=== PATIENT | female | born 1975 | race Caucasian/White ===

== ENCOUNTER 2016-08-24 02:44 | Emergency (ER) | payer BC ==
[~2016-08-24] VITALS: Ht 167.6 cm; Wt 92.5 kg
[2016-08-24 03:01] VITALS: TEMP 36.9; Ht 167.6 cm; Wt 92.5 kg
[2016-08-24] MEDS ORDERED: SODIUM CHLORIDE 0.9% 500ML 500 ML IV STA (03:27)
[2016-08-24] MEDS ORDERED: SODIUM CHLORIDE 0.9% 1000ML 1,000 ML IV STA (03:27)
--- NOTE | 2016-08-24 03:31 | EMERGENCY ROOM VISIT NOTE ---
History Report prepared by Manav: Williams Dee Under the Supervision of: Dr. Pavithra Monteiro M.D. First contact with patient: 03:09 Chief Complaint: ABDOMINAL PAIN Stated Complaint: STOMACH PAINS Nursing Triage Summary: francy florez. takes Humira every 14 days. pain started . took Humira Wednesday. pt feeling like she is bloated. having intermittent abdominal pain. denies N/V/D. normal BMs for pt every 2-3 days as usual. pt states she feels like food is sitting in her throat. History of Present Illness The patient is a 41 year old female who presents to the Emergency Room with complaints of intermittent pain in the epigastric region that began on of last week, 4 days prior to arrival. She describes the pain as a "pressure." The patient has a history of Crohn's disease, but is not sure if these symptoms are related to that. She has been noticing some bright red blood in the stool which she believes is from hemorrhoids. The patient does not usually see blood in the stool. Source of History: patient Onset: 4 days [employer] Position: abdomen (Epigastric) Quality: pressure Timing: intermittent Note: Blood in the stool Review of Systems See HPI for pertinent positives & negatives. A total of 10 systems reviewed and were otherwise negative. Past Medical & Surgical Medical Problems: (1) Crohn's disease Crohn's disease Family History Diabetes mellitus Social History Smoking Status: Never Smoker Drug Use: none Marital Status: Housing Status: lives with significant other Occupation Status: employed Current/Historical Medications Scheduled Adalimumab (Humira Pen), 1 DOSE SC DIRECTED Allergies Coded Allergies: Sulfa Antibiotics (Verified Adverse Reaction, Unknown, vomiting, 08/24/16) Physical Exam Vital Signs Date Time Temp Pulse Resp B/P Pulse Ox O2 Delivery O2 Flow Rate FiO2 08/24/16 06:50 68 18 119/74 96 08/24/16 05:04 72 18 128/66 95 Room Air 08/24/16 03:01 36.9 92 18 110/53 98 Room Air Physical Exam Vital signs reviewed. General: Well-appearing female, in no significant distress. HEENT: No scleral icterus, PERRLA, neck supple. Atraumatic. Cardiovascular: Regular rate and rhythm, no extra sounds. Pulmonary: Clear to auscultation bilaterally, normal work of breathing. Abdomen: Tender to palpation over the right upper quadrant. There is no rebounding or guarding. Soft, nondistended, positive bowel sounds. Musculoskeletal: Atraumatic, no peripheral edema. Neurologic: Patient awake alert and oriented x 3 Skin: Warm, dry, no rash Medical Decision & Procedures ER Provider Diagnostic Interpretation: X-ray results as stated below per my interpretation and radiologist interpretation. Other radiology results as stated below per my review and radiologist interpretation: US RUQ: Mild right hydronephrosis and proximal hydroureter. NO gallstones. No gallbladder wall thickening or pericholecystic fluid. Common bile duct within normal limits. Negative sonographic Zayas's sign. Pancrease not well visualized. Radiologist: Sherine Mendoza MD. CT ABDOMEN & PELVIS: Right renal pelviectasis or extrarenal pelvis. No evidence of ureteral stone. A recently passed stone is not entirely excluded. Normal caliber appendix. Query involuting cyst in the left ovary. Right ovary not well visualized. Moderate pelvis free fluid. Ultrasound may be considered if clinically indicated. Mild duodenal wall thickening suggested with adjacent stranding. Correlate clinically for duodenitis or pancreatitis. Moderate amount of stool in the colon. No evidence of bowel obstruction. Small nonspecific mesenteric and retroperitoneal lymph nodes. No fluid collections or free tena. Radiologist: Sherine Cotter M.D. X-ray results as stated below per interpretation by me and the radiologist: ABD X-RAY: No focal lung consolidation, abdomen shows no signs of obstruction, no free air , moderate fecal retention. Laboratory Results 08/24/16 03:37 Red Blood Count 4.50, Mean Corpuscular Volume 78.9, Mean Corpuscular Hemoglobin 26.2, Mean Corpuscular Hemoglobin Concent 33.2, Mean Platelet Volume 10.0, Neutrophils (%) (Auto) 57.7, Lymphocytes (%) (Auto) 26.5, Monocytes (%) (Auto) 13.2, Eosinophils (%) (Auto) 1.9, Basophils (%) (Auto) 0.5, Neutrophils # (Auto ) 3.71, Lymphocytes # (Auto) 1.70, Monocytes # (Auto) 0.85, Eosinophils # (Auto ) 0.12, Basophils # (Auto) 0.03 08/24/16 03:37 Test 08/24/16 03:37 White Blood Count 6.42 K/uL (4.8-10.8) Red Blood Count 4.50 M/uL (4.2-5.4) Hemoglobin 11.8 g/dL (12.0-16.0) Hematocrit 35.5 % (37-47) Mean Corpuscular Volume 78.9 fL (80-100) Mean Corpuscular Hemoglobin 26.2 pg (25-34) Mean Corpuscular Hemoglobin Concent 33.2 g/dl (32-36) Platelet Count 238 K/uL (130-400) Mean Platelet Volume 10.0 fL (7.4-10.4) Neutrophils (%) (Auto) 57.7 % Lymphocytes (%) (Auto) 26.5 % Monocytes (%) (Auto) 13.2 % Eosinophils (%) (Auto) 1.9 % Basophils (%) (Auto) 0.5 % Neutrophils # (Auto) 3.71 K/uL (1.4-6.5) Lymphocytes # (Auto) 1.70 K/uL (1.2-3.4) Monocytes # (Auto) 0.85 K/uL (0.11-0.59) Eosinophils # (Auto) 0.12 K/uL (0-0.5) Basophils # (Auto) 0.03 K/uL (0-0.2) RDW Standard Deviation 39.5 fL (36.4-46.3) RDW Coefficient of Variation 14.0 % (11.5-14.5) Immature Granulocyte % (Auto) 0.2 % Immature Granulocyte # (Auto) 0.01 K/uL (0.00-0.02) Urine Color YELLOW Urine Appearance CLEAR (CLEAR) Urine pH 7.0 (4.5-7.5) Urine Specific [place] 1.025 (1.000-1.030) Urine Protein NEG (NEG) Urine Glucose (UA) NEG (NEG) Urine Ketones NEG (NEG) Urine Occult Blood NEG (NEG) Urine Nitrite NEG (NEG) Urine Bilirubin NEG (NEG) Urine Urobilinogen NEG (NEG) Urine Leukocyte Esterase SMALL (NEG) Urine WBC (Auto) 1-5 /hpf (0-5) Urine RBC (Auto) 0-4 /hpf (0-4) Urine Hyaline Casts (Auto) 1-5 /lpf (0-5) Urine Epithelial Cells (Auto) >30 /lpf (0-5) Urine Bacteria (Auto) 1+ (NEG) Anion Gap 10.0 mmol/L (3-11) Est Creatinine Clear Calc Drug Dose 109.0 ml/min Estimated GFR () 110.4 Estimated GFR (Non- 95.2 BUN/Creatinine Ratio 15.4 (10-20) Calcium Level 8.3 mg/dl (8.5-10.1) Total Bilirubin 0.2 mg/dl (0.2-1) Direct Bilirubin < 0.1 mg/dl (0-0.2) Aspartate Amino Transf (AST/SGOT) 13 U/L (15-37) Alanine Aminotransferase (ALT/SGPT) 28 U/L (12-78) Alkaline Phosphatase 52 U/L (45-117) Total Protein 7.0 gm/dl (6.4-8.2) Albumin 3.5 gm/dl (3.4-5.0) Lipase 100 U/L (73-393) Date/Time Source Procedure Growth Status 08/24/16 03:37 Urine , Clean Catch Urine Culture - Final MORE THAN THREE TYPES OF ORGANISMS KS... Complete Laboratory results per my review. Medications Administered Medications (Trade) Dose Ordered Sig/Viviane Route Start Time Stop Time Status Last Admin Dose Admin Sodium Chloride 500 ml @ 999 mls/hr Q31M STAT IV 08/24/16 03:27 08/24/16 03:57 DC 08/24/16 03:41 999 MLS/HR Sodium Chloride (Nss 1000ml) 1,000 ml @ 125 mls/hr Q8H STAT IV 08/24/16 03:27 08/24/16 09:56 DC 08/24/16 03:40 125 MLS/HR Magnesium Citrate (Citrate Of Magnesia Soln) 150 ml NOW ONCE PO 08/24/16 05:00 08/24/16 05:01 DC 08/24/16 06:30 150 ML Bisacodyl (Dulcolax Supp) 10 mg NOW STAT KS 08/24/16 04:53 08/24/16 04:54 DC 08/24/16 06:30 10 MG ED Course 0325: Past medical records reviewed. The patient was evaluated in room B9. A complete history and physical examination was performed. 0327: Ordered Sodium Chloride 1000 mL @ 125 mL/hr IV, Sodium Chloride 500 mL @ 999 mL/hr IV. 0453: Ordered Bisacodyl 10 mg KS. 0500: Ordered Magnesium Citrate 150 mL PO. 0519: I checked on the patient at this time. She is going to CT scan. 0641: Upon reevaluation, the patient appeared to have improvement of her symptoms. I discussed findings with her. She verbalized agreement of the treatment plan. The patient was discharged home. Medical Decision Differential diagnosis: Etiologies such as appendicitis, diverticulitis, PUD, biliary pathology, UTI, pancreatitis, obstruction, mesenteric ischemia, aortic pathology, infections, inflammatory bowel disease, renal colic, as well as others were entertained. This pt was evaluated and appeared to be in no distress. PE is significant for a mild RUQ tenderness. Pt was hydrated with NSS. Abd XR series to my interpretation reveals no obstruction or FA, moderate fecal retention. US RUQ is negative for acute cholecystitis. UA is negative. Lab work is negative for acute abnormalities. Pt was informed of the findings. She was given mag citrate and a dulcolax suppository at d/c. Pt will f/u with PCP this week and return to the ED for worsening of symptoms or any medical concerns. Impression Primary Impression: Right upper quadrant abdominal pain Additional Impressions: Hydronephrosis, right Constipation Scribe Attestation The scribe's documentation has been prepared under my direction and personally reviewed by me in its entirety. I confirm that the note above accurately reflects all work, treatment, procedures, and medical decision making performed by me. Departure Information Dispostion Home / Self-Care Referrals Chase Pryor DO (PCP) Forms Call Back Authorization, HOME CARE DOCUMENTATION FORM, IMPORTANT VISIT INFORMATION Patient Instructions My [facility] Additional Instructions Diagnosis: Right upper quadrant abdominal pain, constipation, right hydronephrosis Magnesium citrate, one half bottle this morning and repeat later today if no bowel movement. Dulcolax suppository. Increase the fiber and water in your diet. Follow-up with your primary care physician this week for reevaluation and consideration of further testing regarding the hydronephrosis. If no improvement on repeat imaging, you may need referral to urology. Return to the emergency department for worsening of symptoms or any medical concerns. Problem Qualifiers Additional Impressions: Constipation Constipation type: slow transit constipation Qualified Codes: K59.01 - Slow transit constipation
[2016-08-24] MEDS ORDERED: ADAL40KI SC (03:50)
[2016-08-24 03:51] LABS: BASO % 0.5 %; BASO ABS # 0.03 K/uL (0-0.2); COMPLETE YES; EOS % 1.9 %; HEMATOCRIT 35.5 % (37-47); IG% 0.2 %; LYMPH % 26.5 %; MEAN CELL VOLUME 78.9 fL (80-100); MEAN CORPUSCULAR HEMOGLOBIN 26.2 pg (25-34); MEAN CORPUSCULAR HGB CONC 33.2 g/dl (32-36); MONO % 13.2 %; NEUT % 57.7 %; PLATELET COUNT 238 K/uL (130-400); WHITE BLOOD COUNT 6.42 K/uL (4.8-10.8)
[2016-08-24 03:56] LABS: URINE APPEARANCE CLEAR (CLEAR); URINE BILIRUBIN NEG (NEG); URINE COLOR YELLOW; URINE EPITHELIAL CELL AUTO >30 /lpf (0-5); URINE NITRITE NEG (NEG); URINE SPECIFIC GRAVITY 1.025 (1.000-1.030); UROBILINOGEN NEG (NEG); ZZUR CULT IF INDIC CLEAN CATCH YES
[2016-08-24 03:59] LABS: MANUAL MICROSCOPIC REQUIRED? NO; REVIEW REQ? NO
[2016-08-24 04:08] LABS: ALT/SGPT 28 U/L (12-78); AST/SGOT 13 U/L (15-37); BLOOD UREA NITROGEN 12 mg/dl (7-18); BUN/CREATININE RATIO 15.4 (10-20); CALCIUM 8.3 mg/dl (8.5-10.1); CARBON DIOXIDE 25 mmol/L (21-32); CHLORIDE 106 mmol/L (98-107); CREATININE 0.77 mg/dl (0.60-1.20); GLUCOSE 102 mg/dl (70-99); SODIUM 141 mmol/L (136-145)
[2016-08-24 04:11] LABS: ALKALINE PHOSPHATASE 52 U/L (45-117)
[2016-08-24] MEDS ORDERED: BISACODYL 10 MG SUPP PR STA (04:53)
[2016-08-24] MEDS ORDERED: MAGNESIUM CITRATE 296 ML/BTL PO ONE (05:00)
[2016-08-24 06:50] VITALS: BP 119/74; PULSE 68; O2SAT 96
--- NOTE | 2016-08-24 07:30 | DIAGNOSTIC IMAGING REPORT ---
BILIARY ULTRASOUND CLINICAL HISTORY: Right upper quadrant abdominal pain COMPARISON STUDY: No previous studies for comparison. FINDINGS: The pancreas appears normal as visualized. The liver appears sonographically normal area there is no ductal dilatation. The common bile duct measures 3 mm. The gallbladder is contracted. No stones are visualized. There is mild right-sided hydronephrosis and proximal hydroureter. IMPRESSION: 1. Ultrasonographically normal gallbladder, pancreas, and liver 2. Mild right-sided hydronephrosis and proximal hydroureter Electronically signed by: Biju Knapp M.D. 08/24/2016 7:29 AM Dictated Date/Time: 08/24/2016 7:27 AM
--- NOTE | 2016-08-24 07:31 | DIAGNOSTIC IMAGING REPORT ---
PA CHEST RADIOGRAPH AND UPRIGHT AND SUPINE AP RADIOGRAPHS OF THE ABDOMEN CLINICAL HISTORY: Right upper quadrant pain. Crohn's disease. COMPARISON STUDY: Chest radiograph June 10, 2016 and [facility] October 27, 2010. FINDINGS: Lung volumes are normal. Lungs are clear. There is no pneumothorax or pleural effusion. Cardiac size is normal. Mediastinal contours are normal. There is no evidence of pulmonary edema. There is no free air. The bowel gas pattern is normal. IMPRESSION: 1. No free air or evidence of bowel obstruction. 2. No acute cardiopulmonary findings. Electronically signed by: Patrice Womack M.D. 08/24/2016 7:30 AM Dictated Date/Time: 08/24/2016 7:29 AM
--- NOTE | 2016-08-24 07:48 | DIAGNOSTIC IMAGING REPORT ---
CT OF THE ABDOMEN AND PELVIS WITHOUT CONTRAST CLINICAL HISTORY: Kidney stone. Right flank pain. COMPARISON STUDY: Abdominal series and right upper quadrant ultrasound performed August 24, 2016. TECHNIQUE: Axial images of the abdomen and pelvis were obtained without IV contrast. Images were reviewed in the axial, sagittal, and coronal planes. FINDINGS: Lung bases are clear. There is mild right collecting system dilatation. No ureteral calculi are identified. There are no renal calculi. There may be minimal infiltration adjacent to the upper pole of the right kidney. There is possible infiltration adjacent to the duodenum which is of questionable significance. The appendix is normal. Unenhanced images of the liver, spleen, adrenal glands and pancreas are normal. There is no evidence for a bowel obstruction. A small amount of fluid is noted within the pelvis. Skeletal structures are unremarkable Global. There are prominent mesenteric lymph nodes. None are pathologically enlarged. IMPRESSION: 1. Mild right collecting system dilatation. No ureteral calculi identified. Minimal infiltration adjacent to the upper pole of the right kidney. A recently passed right sided calculus or an infectious process could result in this imaging appearance. 2. Normal appendix. 3. No bowel obstruction. 4. Equivocal nonspecific infiltration adjacent to the duodenum. Electronically signed by: Patrice Womack M.D. 08/24/2016 7:46 AM Dictated Date/Time: 08/24/2016 7:40 AM
== END 2016-08-24 06:51 | disposition home or self-care (01) ==
LOC: C.EDB 02:45
DX: R10.11 Right upper quadrant pain (principal); N13.30 Unspecified hydronephrosis; K59.01 Slow transit constipation; K50.90 Crohn's disease, unspecified, without complications; Z88.2 Allergy status to sulfonamides; Z83.3 Family history of diabetes mellitus

== ENCOUNTER → 2016-09-04 | Outpatient (CLI) | payer BC ==
[~2016-09-04] MED LIST: ADAL40KI SC
== END | disposition home or self-care (01) ==
LOC: C.LABSPEC 10:59
PROVIDERS: ATTEND Urology
DX: R30.0 Dysuria (principal)

== ENCOUNTER → 2016-12-07 | Outpatient (CLI) | payer BC ==
--- NOTE | 2016-12-07 08:11 | DIAGNOSTIC IMAGING REPORT ---
EXAMINATION: RENAL ULTRASOUND CLINICAL HISTORY: N13.30 Hydronephrosis COMPARISON STUDY: CT scan dated 08/24/2016 FINDINGS: The right kidney measures 12.2 cm. The left kidney measures 12.9 cm. There is mild fullness of each renal pelvis, more pronounced on the right. There are no renal masses. No bladder abnormalities are visualized. Bilateral ureteral jets were visualized. IMPRESSION : Mild prominence of each renal pelvis. Significant obstruction is not felt to be present as bilateral ureteral jets were visualized. Electronically signed by: Biju Knapp M.D. 12/07/2016 8:09 AM Dictated Date/Time: 12/07/2016 8:08 AM
== END | disposition home or self-care (01) ==
LOC: C.ULTR 07:35
PROVIDERS: ATTEND Urology
DX: N13.30 Unspecified hydronephrosis (principal)

== ENCOUNTER → 2017-04-21 | Outpatient (CLI) | payer BC ==
--- NOTE | 2017-04-22 07:46 | MAMMOGRAPHY REPORT ---
BILATERAL DIGITAL SCREENING MAMMOGRAM TOMOSYNTHESIS WITH CAD: 04/21/2017 CLINICAL HISTORY: Routine screening. Patient has no complaints. TECHNIQUE: Breast tomosynthesis in addition to standard 2D mammography was performed. Current study was also evaluated with a Computer Aided Detection (CAD) system. COMPARISON: Comparison is made to exams dated: 04/20/2016 mammogram - [facility] a nd 10/23/2008. BREAST COMPOSITION: The tissue of both breasts is heterogeneously dense, which may obscure small mas ses. FINDINGS: No suspicious masses, calcifications, or areas of architectural distortion are noted in ei ther breast. There has been no significant interval change compared to prior exams. IMPRESSION: ACR BI-RADS CATEGORY 1: NEGATIVE There is no mammographic evidence of malignancy. A 1 year screening mammogram is recommended. The pa tient will receive written notification of the results. Approximately 10% of breast cancers are not detected with mammography. A negative mammographic report should not delay biopsy if a clinically suggestive mass is present. Angi Watkins M.D. ah/:04/21/2017 15:09:00 Library Media Specialist: Carrie Ambrose RT(R)(M), [facility] letter sent: Normal 1/2 BI-RADS Code: ACR BI-RADS Category 1: Negative
== END | disposition home or self-care (01) ==
LOC: C.MAMM 14:05
PROVIDERS: ATTEND Obstetrics & Gynecology
DX: Z12.31 Encounter for screening mammogram for malignant neoplasm of breast (principal)

== ENCOUNTER → 2017-09-28 | Outpatient (CLI) | payer OTHER | END | disposition home or self-care (01) | LOC: C.PAPS 08:06 | PROVIDERS: ATTEND Obstetrics & Gynecology | DX: Z01.419 Encounter for gynecological examination (general) (routine) without abnormal findings (principal) ==

== ENCOUNTER → 2017-10-20 | Outpatient (CLI) | payer OTHER | END | disposition home or self-care (01) | LOC: C.LABSPEC 15:44 | PROVIDERS: ATTEND Obstetrics & Gynecology | DX: Z30.430 Encounter for insertion of intrauterine contraceptive device (principal) ==